=== PATIENT | male | born 1980 ===

== ENCOUNTER 2025-07-03 15:01 | Observation (INO) | payer OTHER ==
[~2025-07-03] VITALS: Ht 188 cm; Wt 99.8 kg
[2025-07-03] VITALS (11 sets, daily range): BP systolic 133–168; BP diastolic 85–103
[2025-07-03] MEDS ORDERED: NS 1,000 ML IV SCH ×2 (15:45→16:20)
[2025-07-03] MEDS ORDERED: Ampicillin Sod/Sulbactam Sod 3 GM in NS 100 ML IV ONE (15:50)
[2025-07-03 16:07] LABS: BASOPHILS ABSOLUTE AUTO 0.03 K/mm3 (0.00-0.23); BASOPHILS PERCENT AUTO 0 % (0-2); EOSINOPHILS ABSOLUTE AUTO 0.47 K/mm3 (0.00-0.68); EOSINOPHILS PERCENT AUTO 3 % (0-6); Hematocrit 42.8 % (37.0-53.0); Hemoglobin 15.3 g/dL (13.5-17.5); IMMATURE GRAN ABSOLUTE AUTO 0.05 K/mm3 (0.00-0.10); IMMATURE GRAN PERCENT AUTO 0 % (0-1); LYMPHOCYTES ABSOLUTE AUTO 1.99 K/mm3 (0.84-5.20); LYMPHOCYTES PERCENT AUTO 13 % (21-46); MONOCYTES ABSOLUTE AUTO 1.25 K/mm3 (0.16-1.47); MONOCYTES PERCENT AUTO 8 % (4-13); Mean Corpuscular HGB Conc 35.7 g/dL (31.5-36.5); Mean Corpuscular Volume 89 fL (80-100); NEUTROPHILS ABSOLUTE AUTO 11.46 K/mm3 (1.96-9.15); NEUTROPHILS PERCENT AUTO 75 % (41-73); NRBC ABSOLUTE 0.00 K/mm3 (0.00-0.02); NRBC Auto 0.0 /100 WBC (0.0-0.2); Platelet Count 228 K/mm3 (150-400); RDW Coefficient Variation 13.2 % (11.7-14.2); RDW Standard Deviation 42.6 fL (35.1-46.3)
[2025-07-03] MEDS ORDERED: Ampicillin Sod/Sulbactam Sod 3 GM ONE (16:12)
[2025-07-03] MEDS ORDERED: Ondansetron HCl 2 MG / ML 2ML Vial IV PRN ×3 (16:20→19:20)
[2025-07-03] MEDS ORDERED: HYDROmorphone HCl/Pf 1MG SYR IV PRN ×4 (16:20→19:15)
[2025-07-03 16:29] LABS: Alanine Aminotransfer (ALT/SGP 25.0 U/L (12-78); Albumin, Blood 3.6 g/dL (3.4-5.0); Albumin/Globulin Ratio 1.0 (0.8-1.8); Anion Gap 8.0 mmol/L (3-11); Aspartate Aminotrans (AST/SGOT 19.0 U/L (12-37); Bilirubin, Total 1.2 mg/dL (0.1-1.0); Blood Urea Nitrogen 21.0 mg/dL (8-24); CO2, Blood 24.0 mmol/L (21-32); Calcium, Blood 8.9 mg/dL (8.5-10.1); Chloride, Blood 112.0 mmol/L (98-108); Creatinine, Blood 1.14 mg/dL (0.60-1.20); Globulin, Blood 3.6 g/dL (2.2-4.0); Glucose, Blood 104.0 mg/dL (70-99); Potassium, Blood 3.6 mmol/L (3.5-5.5); Sodium, Blood 140.0 mmol/L (136-145); Total Protein, Blood 7.2 g/dL (6.4-8.2)
[2025-07-03] MEDS ORDERED: Bupivacaine 0.5% HCl 5 MG/ML 30MLVIAL ONE (16:43)
[2025-07-03] MEDS ORDERED: PAROXETINE CR25 MG (17:20)
[2025-07-03] MEDS ORDERED: OLMESARTAN MEDO20 MG (17:21)
[2025-07-03] MEDS ORDERED: [UNRECOGNIZED DRUG - OTHER] (17:21)
[2025-07-03] MEDS ORDERED: ESOMEPRAZOLE MA40 MG (17:21)
[2025-07-03] MEDS ORDERED: CLOBETASOL EMOL15 G1 (17:21)
[2025-07-03] MEDS ORDERED: MULVITA (17:22)
[2025-07-03] MEDS ORDERED: LORA10ER PO (17:23)
[2025-07-03] MEDS ORDERED: ALLERCLEAR10 MG PO (17:23)
[2025-07-03] MEDS ORDERED: MINCORA TABLET1 EACH PO (17:24)
[2025-07-03] MEDS ORDERED: ZINC220 PO (17:24)
[2025-07-03] MEDS ORDERED: FISH OIL 1,0001 EA10 PO (17:25)
[2025-07-03] MEDS ORDERED: Pataday2.5 ML (17:25)
[2025-07-03] MEDS ORDERED: MAGNESIUM OXID500 MG PO (17:25)
[2025-07-03] MEDS ORDERED: FLUT.05NI (17:26)
[2025-07-03] MEDS ORDERED: Dexamethasone Sod Phos 10 MG/ML 1ML VIAL ONE (17:38)
[2025-07-03] MEDS ORDERED: Rocuronium Bromide 10 MG/ML 5ML Injection IV ONE ×2 (17:38→18:28)
[2025-07-03] MEDS ORDERED: FentaNYL Citrate 50 MCG/ML 2 ML Injection ONE (17:38)
[2025-07-03] MEDS ORDERED: Sugammadex Sodium 200 MG/2ML SDV (100 MG/ML) ONE (17:38)
[2025-07-03] MEDS ORDERED: HYDROmorphone HCl/Pf 1MG SYR ONE (17:38)
[2025-07-03] MEDS ORDERED: Ondansetron HCl 2 MG / ML 2ML Vial ONE (17:38)
--- NOTE | 2025-07-03 17:49 | NUR ---
History, Chart, Medications and Allergies reviewed before start of procedure. Lungs clear T/O to Auscultation. Patient confirms NPO status and agrees with scheduled surgery. Pre-Op teaching done. Pt verbalizes understanding. Surgical site prepped with 2% Chlorhexidine cloth wipe.
[2025-07-03] MEDS ORDERED: FentaNYL Citrate 50 MCG/ML 2 ML Injection IV PRN ×2 (18:30)
[2025-07-03] MEDS ORDERED: FLU VACC TS2025-26(6MOS UP)/PF 45 MCG/0.5 ML SYRINGE IM ONE (19:15)
--- NOTE | 2025-07-03 19:20 | NUR ---
PT ARRIVES TO FLOOR VIA GURNEY FROM PACU. PT A&OX4 AND HAS NO C/O NAUSEA OR PAIN. PT AT BEDSIDE; ORIENTED TO ROOM AND CALL LIGHT WITHIN REACH.
[2025-07-03] MEDS ORDERED: Ketorolac Tromethamine 15mg Vial IV PRN (19:25)
--- NOTE | 2025-07-03 22:30 | NUR ---
RN TO ROOM TO MEDICATE; PT AMBULATED TO RESTROOM INDEPENDENTLY AND VOIDED. PT TOLERATING PO FLUIDS.
[2025-07-04 00:05] VITALS: BP 126/88
[2025-07-04 04:03] VITALS: BP 129/84
--- NOTE | 2025-07-04 05:15 | NUR ---
SHIFT SUMMARY NO ACUTE EVENTS OVERNIGHT. PT MEDICATED WITH TYLENOL FOR SORE THROAT AND MILD ABDOMINAL PAIN AFTER 0400 ASSESSMENT. PT EAGER TO AMBULATE AND DISCHARGE. PT TOLERATING PO INTAKE. PT AMBULATING INDEPENDENTLY TO RESTROOM AND VOIDING. LAP SITES CDI.
[2025-07-04 07:36] VITALS: BP 107/57
[2025-07-04] MEDS ORDERED: Acetaminophen325 M1 PO (08:10)
[2025-07-04] MEDS ORDERED: Enoxaparin 40 MG/0.4 ML SYR SC SCH (09:00)
[2025-07-04] MEDS ORDERED: Fluticasone 0.05% Nasal Spray SCH (09:00)
--- NOTE | 2025-07-04 09:42 | NUR ---
DC'D HOME,DC INSTRUCTIONS GIVEN, VERBALIZED UNDERSTANDING, IV DC'D, CATH INTACT, BELONGINGS GIVEN BACK TO PT AND SPOUSE.
== END 2025-07-04 10:08 | disposition home or self-care (01) ==
LOC: ER 15:01 → SURS 15:02 → ER 16:00 → SURS 17:05
PROVIDERS: Student in an Organized Health Care Education/Training Program; ADMIT Surgery
PROC: 0DTJ4ZZ Resection of Appendix, Percutaneous Endoscopic Approach (ICD-10-PCS; principal; 2025-07-03 16:00)
DX: K35.80 Unspecified acute appendicitis (principal); K21.9 Gastro-esophageal reflux disease without esophagitis; I10 Essential (primary) hypertension; Z90.49 Acquired absence of other specified parts of digestive tract; Z79.899 Other long term (current) drug therapy
CPT/HCPCS: 80053; 85025; 88304; 94760; 96365-59; 99285-25; A9270; G0378; J0295; J1100; J1171; J1650; J2405; J2704; J3010; J7030; J7120

== ENCOUNTER → 2025-07-03 | Outpatient (CLI) | payer OTHER ==
[~2025-07-03] MED LIST: ALLERCLEAR10 MG PO; Acetaminophen325 M1 PO; CLOBETASOL EMOL15 G1; ESOMEPRAZOLE MA40 MG; FISH OIL 1,0001 EA10 PO; FLUT.05NI; LORA10ER PO; MAGNESIUM OXID500 MG PO; MINCORA TABLET1 EACH PO; MULVITA; OLMESARTAN MEDO20 MG; PAROXETINE CR25 MG; Pataday2.5 ML; ZINC220 PO; [UNRECOGNIZED DRUG - OTHER]
[2025-07-03 11:25] LABS: BASOPHILS ABSOLUTE AUTO 0.04 K/mm3 (0.00-0.23); BASOPHILS PERCENT AUTO 0 % (0-2); EOSINOPHILS ABSOLUTE AUTO 0.28 K/mm3 (0.00-0.68); EOSINOPHILS PERCENT AUTO 2 % (0-6); Hematocrit 43.9 % (37.0-53.0); Hemoglobin 15.4 g/dL (13.5-17.5); IMMATURE GRAN ABSOLUTE AUTO 0.07 K/mm3 (0.00-0.10); IMMATURE GRAN PERCENT AUTO 1 % (0-1); LYMPHOCYTES ABSOLUTE AUTO 1.41 K/mm3 (0.84-5.20); LYMPHOCYTES PERCENT AUTO 10 % (21-46); MONOCYTES ABSOLUTE AUTO 1.23 K/mm3 (0.16-1.47); MONOCYTES PERCENT AUTO 8 % (4-13); Mean Corpuscular HGB Conc 35.1 g/dL (31.5-36.5); Mean Corpuscular Volume 88 fL (80-100); NEUTROPHILS ABSOLUTE AUTO 11.88 K/mm3 (1.96-9.15); NEUTROPHILS PERCENT AUTO 80 % (41-73); NRBC ABSOLUTE 0.00 K/mm3 (0.00-0.02); NRBC Auto 0.0 /100 WBC (0.0-0.2); Platelet Count 214 K/mm3 (150-400); RDW Coefficient Variation 13.4 % (11.7-14.2); RDW Standard Deviation 43.1 fL (35.1-46.3)
[2025-07-03 11:34] LABS: Alanine Aminotransfer (ALT/SGP 17.0 U/L (12-78); Albumin, Blood 3.9 g/dL (3.4-5.0); Albumin/Globulin Ratio 1.1 (0.8-1.8); Anion Gap 19.0 mmol/L (6-16); Aspartate Aminotrans (AST/SGOT 6.0 U/L (12-37); Bilirubin, Total 1.3 mg/dL (0.1-1.0); Blood Urea Nitrogen 21.0 mg/dL (8-24); CO2, Blood 23.0 mmol/L (21-32); Calcium, Blood 9.2 mg/dL (8.5-10.1); Chloride, Blood 107.0 mmol/L (98-108); Creatinine, Blood 1.37 mg/dL (0.60-1.20); Globulin, Blood 3.4 g/dL (2.2-4.0); Glucose, Blood 120.0 mg/dL (70-99); Potassium, Blood 3.6 mmol/L (3.5-5.5); Sodium, Blood 145.0 mmol/L (136-145); Total Protein, Blood 7.3 g/dL (6.4-8.2)
== END | disposition home or self-care (01) ==
LOC: LAB 11:19 → LAB SHORT 11:19
PROVIDERS: Family Medicine
DX: R10.31 Right lower quadrant pain (principal)
CPT/HCPCS: 80053; 85025